=== PATIENT | female | born 1980 | race African-American/Black ===

== ENCOUNTER 2016-10-24 14:18 | Inpatient (IN) | payer MEDICAID ==
[~2016-10-24] VITALS: Ht 165.1 cm; Wt 79.7 kg
[2016-10-24 14:35] VITALS: Ht 165.1 cm; Wt 79.7 kg
[2016-10-24] MEDS ORDERED: PRENAT PO (14:37)
[2016-10-24] MEDS ORDERED: LACTATED RINGER'S 1,000 ML IV SCH (15:58)
[2016-10-24] MEDS ORDERED: AMPICILLIN 2 GM/NS (PMX) 100 ML IV ONE (16:00)
[2016-10-24] MEDS ORDERED: MISOPROSTOL 200 MCG TAB PR PRN (16:00)
[2016-10-24] MEDS ORDERED: OXYTOCIN 30 UNITS/LR 500 ML IV SCH ×2 (16:00)
[2016-10-24] MEDS ORDERED: BUTORPHANOL 2 MG INJ IV PRN (16:00)
[2016-10-24] MEDS ORDERED: CARBOPROST 250 MCG INJ IM PRN (16:00)
[2016-10-24] MEDS ORDERED: LIDOCAINE 1% (MPF) 30 ML INJ INJ PRN (16:00)
[2016-10-24] MEDS ORDERED: METHYLERGONOVINE 0.2 MG INJ IM PRN (16:00)
[2016-10-24] MEDS ORDERED: OXYTOCIN 30 UNITS/LR 500 ML IV PRN (16:00)
[2016-10-24] MEDS ORDERED: LACTATED RINGER'S 1,000 ML IV PRN (16:00)
[2016-10-24] MEDS ORDERED: IBUPROFEN 600 MG TAB PO PRN (16:00)
--- NOTE | 2016-10-24 16:27 | TRIAGE ---
OB Triage Datetime Report Generated by CPN: 10/24/2016 16:27 Datetime: 10/24/2016 14:44 Stage of : OB Triage Assessment Type: Triage Maternal Assessment Level of Consciousness: Fully Conscious DTR's/Clonus: DTRs 2+; No Clonus Headache: Denies Blurred Vision: No Respiratory Effort: Unlabored; Regular Rhythm; Equal Expansion Breath Sounds, Left: Clear and Equal Breath Sounds, Right: Clear and Equal Nausea/Vomiting: Denies RUQ Epigastric Pain: Denies Lower Extremities Edema: None Degree: None Upper Extremities Edema: None Degree: None Facial Edema: None Temperature Route: Oral Fall Risk Assessment History of Falling: (0) No Secondary Diagnosis: (0) No Ambulatory Aid: (0) Bedrest/Nurse Assist IV Therapy: (0) No Gait: (0) Normal/Bedrest/Immobile Mental Status: (0) Oriented to Own Ability Fall Score: 0 Fall Risk Score Definition: No Risk: No action required Labor Evaluation Frequency: OCC Monitor Mode: External Duration (sec)2399: 60-80 Quality: Mild Pattern: Normal: <= 5 Contractions in 10 Minutes Resting Tone [place]: Relaxed Heart Rate FHR Baseline Rate: 130 Monitor Mode: External US FHR Baseline Changes: No Baseline Change Variability: Moderate 6-25 bpm Accelerations: 15X15 Decelerations: None Category: Category I Pain Assessment Pain Scale: 4 Pain Presence: Intermittent Pain Type: Cramping Pain Location: Abdomen Pain Relief Measures: Comfort Measures Vaginal Exam Membrane Status: Intact Datetime: 10/24/2016 14:38 Time of Arrival: 10/24/2016 14:35 EGA: 40.0 Arrived By: Ambulatory Arrived From: Home Chief Complaint: UC'S SINCE 10/23/16 IN THE MORNING Movement: Present Contractions: Irregular Contractions: 3-5 Rupture of Membranes: Denies Vaginal Bleeding: None Vaginal Discharge: Denies Recent Sexual Intercouse: Denies Abdominal Trauma: Not Applicable Patient Complaints: Contractions Time Provider Notified: 10/24/2016 16:10 Provider Notified: BENITO Initial Plan: U/S FOR POSITION AND ADMIT TO L_D
--- NOTE | 2016-10-24 16:34 | RADRPT ---
PROCEDURE: US OB. CLINICAL INDICATION: Pelvic pain , contractions TECHNIQUE: Transabdominal views of the pelvis are available for review. COMPARISON: No prior studies are available for comparison. FINDINGS: There is a single intrauterine gestation in a vertex position. The heart rate is noted at 128 bpm. The placenta is posterior. RPTAT: AA IMPRESSION: presentation is vertex. .Natalio Stacy MD, MD Date Time Electronically viewed and signed by .Natalio Stacy MD, MD on 10/24/2016 16:33 .S/
--- NOTE | 2016-10-24 18:57 | RADRPT ---
PROCEDURE: US biophysical profile. CLINICAL INDICATION: Macrosomia. well-being. TECHNIQUE: Multiple sonographic images of the uterus were obtained. The images were revi ewed on a PACS workstation. COMPARISON: 10/24/2016. FINDINGS: There is a single live intrauterine gestation. heart rate is 140 beats per minute. The position is cephalic. The placenta is posterior, grade 2. The PETRA is 12.2 cm. Breathing Movement: 2 Gross Body Movement: 2 Tone: 2 Qualitative Amniotic Fluid Volume: 2 TOTAL: 8 IMPRESSION: 1. Single viable intrauterine gestation. 2. Biophysical profile = 10/08. 3. PETRA = 12.2 cm. RPTAT: HH .Jerald Ballesteros MD, MD Date Time Electronically viewed and signed by .Jerald Ballesteros MD, MD on 10/24/2016 18:57 .N/
--- NOTE | 2016-10-24 19:02 | RADRPT ---
PROCEDURE: US OB Limited for Estimated Weight. CLINICAL INDICATION: 36 years of age, female. Macrosomia. TECHNIQUE: Multiple sonographic images of the pelvis were obtained. Transabdominal imaging only w as performed. The images were reviewed on a PACS workstation. Image quality: Satisfactory. COMPARISON: No prior studies are available for comparison. FINDINGS: Philip : Number of fetuses: 1 GENERAL EVALUATION: Cardiac activity: Present. FHR 132 bpm Presentation: Cephalic Placenta: Placenta site: Posterior. No evidence of placental previa. Placental grade 2 Cervix (transabdominal): Not evaluated PETRA: Not evaluated DATING: Clinical RAMOS: October 25, 2016 EGA based on RAMOS: 39 weeks 6 days BIOMETRY: BPD = 9.1 cm , 36 weeks 5 days HC = 32.8 cm , 37 weeks 1 day AC = 34.9 cm , 38 weeks 6 days FL = 7.5 cm , 38 weeks 1 day Composite sonographic age: 37 weeks 5 days plus or minus 3 weeks Estimated due date by ultrasound measurements: November 09, 2016 EFW 3429 grams, 36 percentile. ANATOMY: Not evaluated. IMPRESSION: 1. Single living fetus in cephalic presentation. 2. Composite sonographic age of 37 weeks 5 days lags behind the clinical gestation age of 39 weeks 6 days by 2 weeks. 3. Estimated weight is 3429 grams that is at the 36 percentile for gestational age. 4. Posterior grade 2 placenta. RPTAT: HCTS Physician Emma Date Time Electronically viewed and signed by Physician Emma on 10/24/2016 19:02 CS/
[2016-10-24] MEDS ORDERED: AMPICILLIN 1 GM/NS (PMX) 50 ML IV SCH (20:00)
--- NOTE | 2016-10-24 20:37 | TRIAGE ---
OB Triage Datetime Report Generated by CPN: 10/24/2016 20:37 Datetime: 10/24/2016 18:39 Frequency: 2-4 Monitor Mode: External Duration (sec)2399: 40-60 Quality: Mild Pattern: Normal: <= 5 Contractions in 10 Minutes Resting Tone [place]: Relaxed FHR Baseline Rate: 130 Monitor Mode: External US FHR Baseline Changes: No Baseline Change Variability: Moderate 6-25 bpm Accelerations: 15X15 Decelerations: None Category: Category I Pain Scale: 2 Pain Presence: Intermittent Pain Type: Cramping Pain Location: Abdomen Pain Relief Measures: Comfort Measures Datetime: 10/24/2016 17:00 Stage of : Labor Headache: Denies Blurred Vision: No RUQ Epigastric Pain: Denies Facial Edema: None Frequency: 3-5 Monitor Mode: External Duration (sec)2399: 60 Quality: Moderate Pattern: Normal: <= 5 Contractions in 10 Minutes Resting Tone [place]: Relaxed FHR Baseline Rate: 140 FHR Baseline Changes: No Baseline Change Variability: Moderate 6-25 bpm Accelerations: 15X15 Decelerations: None Category: Category I Membrane Status: Intact Datetime: 10/24/2016 16:15 Assessment Type: Admission Assessment Vaginal Bleeding: None Level of Consciousness: Fully Conscious DTR's/Clonus: DTRs 2+; No Clonus Headache: Denies Blurred Vision: No Respiratory Effort: Unlabored; Regular Rhythm; Equal Expansion Breath Sounds, Left: Clear and Equal Breath Sounds, Right: Clear and Equal Nausea/Vomiting: Denies RUQ Epigastric Pain: Denies Lower Extremities Edema: None Degree: None Upper Extremities Edema: None Degree: None Facial Edema: None History of Falling: (0) No Secondary Diagnosis: (0) No Ambulatory Aid: (0) Bedrest/Nurse Assist IV Therapy: (0) No Gait: (0) Normal/Bedrest/Immobile Mental Status: (0) Oriented to Own Ability Fall Score: 0 Fall Risk Score Definition: No Risk: No action required Frequency: 3-5 Duration (sec)9799: 40-60 Quality: Mild Pattern: Normal: <= 5 Contractions in 10 Minutes Resting Tone [place]: Relaxed FHR Baseline Rate: 125 Variability: Moderate 6-25 bpm Accelerations: 15X15 Decelerations: None Category: Category I Pain Scale: 4 Pain Presence: Intermittent Pain Type: Cramping Pain Location: Abdomen Membrane Status: Intact Datetime: 10/24/2016 16:12 Dilatation (cms): 1.0 Effacement (%): 50 Station: -3 Datetime: 10/24/2016 15:33 Frequency: 3-5 Monitor Mode: External Duration (sec)1105: 60-70 Quality: Mild Pattern: Normal: <= 5 Contractions in 10 Minutes Resting Tone [place]: Relaxed FHR Baseline Rate: 120 Monitor Mode: External US FHR Baseline Changes: No Baseline Change Variability: Moderate 6-25 bpm Accelerations: 15X15 Decelerations: None Category: Category I Pain Scale: 4 Pain Presence: Intermittent Pain Type: Cramping Pain Location: Abdomen Pain Relief Measures: Comfort Measures Datetime: 10/24/2016 14:44 Fall Score: 0 Fall Risk Score Definition: No Risk: No action required Datetime: 10/24/2016 14:38 Initial Plan: U/S FOR POSITION AND ADMIT TO L_D BPP AND EFW AND PETRA
--- NOTE | 2016-10-24 20:53 | PN ---
Triage Information Date/Time Oct 24, 2016 at 16:30 Reason for visit: Uterine contractions Weeks of Gestation 40w /Para 4/2 Hypertention: none Additional information PMHx: none. PSHx: none. POBHx: x 2. NKDA. Objective BP 103/68 T=98.4 Heart Rate: 130's Heart Rate Comments with accels to 160 bpm. No decels. Contractions: >10 Minutes Apart (q 30 minutes for the larger felt UC's but does have smaller, shorter UC's q 1-2 min) Exam 5-%//-3 Results/Medications Imaging Results EFW 3429 grams. BPP 8 with an PETRA of 12.1. VTX. Disposition: Discharge Assessment/Plan Per Dr Vu will return for induction on Friday 10/27. Labor precautions reviewed. The pros and cons of induction were reviewed. ABEL CHING MD Oct 24, 2016 20:53
== END 2016-10-24 20:40 | disposition home or self-care (01) | DRG 780 ==
LOC: L-D 14:18 → OBT 14:18 → L-D 16:30
PROVIDERS: ADMIT Obstetrics & Gynecology; ATTEND Obstetrics & Gynecology
DX: O47.1 False labor at or after 37 completed weeks of gestation (principal); O09.523 Supervision of elderly multigravida, third trimester; Z3A.40 40 weeks gestation of pregnancy
CPT/HCPCS: 76815; 76818; G0463; J7120

== ENCOUNTER 2016-10-27 18:00 | Inpatient (IN) | payer MEDICAID ==
[~2016-10-27] VITALS: Ht 165.1 cm; Wt 80.5 kg
[~2016-10-27 18:00] MED LIST: PRENAT PO
[2016-10-27 18:45] VITALS: Ht 165.1 cm; Wt 80.5 kg
[2016-10-27 18:46] VITALS: BP 109/67; PULSE 86; RESP 17
[2016-10-27] MEDS: LACTATED RINGER'S 1,000 ML IV SCH (19:00)
[2016-10-27] MEDS ORDERED: LIDOCAINE 1% (MPF) 30 ML INJ INJ PRN (20:30)
[2016-10-27] MEDS ORDERED: BUTORPHANOL 2 MG INJ IV PRN (20:30)
[2016-10-27] MEDS ORDERED: OXYTOCIN 30 UNITS/LR 500 ML IV PRN (20:30)
[2016-10-27] MEDS ORDERED: OXYTOCIN 30 UNITS/LR 500 ML IV SCH ×2 (20:30)
[2016-10-27] MEDS ORDERED: METHYLERGONOVINE 0.2 MG INJ IM PRN (20:30)
[2016-10-27] MEDS ORDERED: MISOPROSTOL 200 MCG TAB PR PRN (20:30)
[2016-10-27] MEDS ORDERED: LACTATED RINGER'S 1,000 ML IV PRN (20:30)
[2016-10-27] MEDS ORDERED: IBUPROFEN 600 MG TAB PO PRN (20:30)
[2016-10-27] MEDS ORDERED: CARBOPROST 250 MCG INJ IM PRN (20:30)
[2016-10-27 21:36] LABS: BASOPHILS % 0.5 % (0.0-2.0); EOSINOPHILS # 0.1 10^3/ul (0.0-0.5); EOSINOPHILS % 0.9 % (0.0-7.0); HEMATOCRIT 34.2 % (37.0-47.0); HEMOGLOBIN 11.6 g/dl (12.0-16.0); LYMPHOCYTES # 2.3 10^3/ul (0.8-2.9); LYMPHOCYTES % 30.9 % (15.0-51.0); MEAN CORPUSCULAR HEMOGLOBIN 29.5 pg (29.0-33.0); MEAN CORPUSCULAR HGB CONC 33.9 g/dl (32.0-37.0); MEAN PLATELET VOLUME 9.9 fl (7.4-10.4); MONOCYTE # 0.6 10^3/ul (0.3-0.9); NEUTROPHILS % 57.4 % (39.0-77.0); PLATELET COUNT 175 10^3/UL (140-415); RED BLOOD COUNT 3.93 10^6/ul (4.20-5.40); RED CELL DISTRIBUTION WIDTH 13.4 % (11.5-14.5); WHITE BLOOD COUNT 7.4 10^3/ul (4.8-10.8)
[2016-10-27 21:48] LABS: INR 0.94; PARTIAL THROMBOPLASTIN TIME 25.8 Sec (25.0-35.0); PROTIME 12.6 Sec (12.2-14.2)
--- NOTE | 2016-10-27 22:10 | HP ---
Date/Time of Note Date/Time of Note DATE: 10/27/16 TIME: 22:07 OB - History Hx of Present Chief Complaint: induction of labor Last Menstrual Period: Oct 27, 2016 Estimated Due Date: Oct 26, 2016 : 5 Para: 2 Spontaneous : 2 Therapeutic : 0 Care: Good Care Ultrasounds: Normal mid trimester US Obstetrical Complications: None Medical Complications: None Past Family/Social History * Past Medical, Surgical, Family and Obstetric Histories reviewed from chart. GBS Status: Negative OB Admission Exam Vital Signs Vital Signs Vital Signs Date Time Temp Pulse Resp B/P Pulse Ox O2 Delivery O2 Flow Rate FiO2 10/27/16 18:46 98.6 86 17 109/67 Room Air Physical Exam HEENT: WNL Heart: Rhythm Normal Lungs: Clear, Equal Abdomen: WNL Extremities: Normal Reflexes: Normal Cervical Dilatation: Fingertip Effacement: 50% Station: -2 Membranes: Intact Accelerations: Accelerations Present Decelerations: No Decelerations Varibility: Moderate Last 72 hours Lab Results CBC & BMP 10/27/16 18:50 OB Assessment/Plan Reason for admission: induction of labor Plan: Induction Induction Method: per Misoprostol Protocol ANGELA BATISTA MD Oct 27, 2016 22:10
[2016-10-27] MEDS: MISOPROSTOL 25 MCG CAPSULE PO SCH (22:48)
[2016-10-28] VITALS (8 sets, daily range): BP systolic 97–121; BP diastolic 54–76; PULSE 67–85; RESP 16–20
[2016-10-28] MEDS: MISOPROSTOL 25 MCG CAPSULE PO SCH ×4 (03:02→13:00)
[2016-10-28] MEDS: LACTATED RINGER'S 1,000 ML IV SCH ×3 (03:05→14:10)
[2016-10-28] MEDS ORDERED: DEXTROSE 5%-LR 1,000 ML IV PRN (09:30)
[2016-10-28] MEDS ORDERED: OXYTOCIN 30 UNITS/LR 500 ML IV SCH (09:30)
[2016-10-28] MEDS ORDERED: FENTAnyl 2MCG/ML-ROPIV 0.2% 100 ML ONE (14:38)
--- NOTE | 2016-10-28 18:02 | LDN ---
Date/Time of Note Date/Time of Note DATE: 10/28/16 TIME: 18:01 Delivery Summary Weeks of Gestation term preg nsd Placenta Delivered: Spontaneously Meconium: none Episiotomy: No Anesthesia type: Epidural Estimated blood loss: 350 Sponge & Needle done & correct: Yes All needle counts correct: Yes Problems: CONSTANTINE OLIVER MD Oct 28, 2016 18:02
[2016-10-28] MEDS: LACTATED RINGER'S 1,000 ML IV* SCH (20:44)
[2016-10-28] MEDS ORDERED: ZOLPIDEM 5 MG TAB PO PRN (21:00)
[2016-10-28] MEDS ORDERED: MISOPROSTOL 200 MCG TAB PR PRN (21:00)
[2016-10-28] MEDS ORDERED: CARBOPROST 250 MCG INJ IM PRN (21:00)
[2016-10-28] MEDS ORDERED: BENZOCAINE 20% 56 ML SPRAY TOP PRN (21:00)
[2016-10-28] MEDS ORDERED: MAGNESIUM HYDROXIDE 30ML CUP PO PRN (21:00)
[2016-10-28] MEDS ORDERED: METHYLERGONOVINE 0.2 MG INJ IM PRN (21:00)
[2016-10-28] MEDS ORDERED: ACETAMINOPHEN 325 MG TAB PO PRN (21:00)
[2016-10-28] MEDS ORDERED: SENNA/DOCUSATE NA (8.6MG/50MG) TAB PO PRN (21:00)
[2016-10-28] MEDS ORDERED: OXYTOCIN 30 UNITS/LR 500 ML IV PRN (21:00)
[2016-10-28] MEDS ORDERED: LANOLIN 7 GM TUBE TOP PRN (21:00)
[2016-10-28] MEDS ORDERED: DIPHENHYDRAMINE 25 MG CAP PO PRN (21:00)
[2016-10-28] MEDS ORDERED: WITCH HAZEL/GLYCERIN PAD PR PRN (21:00)
[2016-10-29] MEDS: IBUPROFEN 800 MG TAB PO SCH ×4 (00:27→17:24)
[2016-10-29 00:30] VITALS: BP 120/80; PULSE 80; RESP 18
[2016-10-29] MEDS: OXYTOCIN 30 UNITS/LR 500 ML IV SCH ×2 (00:30→00:44)
[2016-10-29 03:30] VITALS: BP 103/58; PULSE 75; RESP 18
[2016-10-29] MEDS: LACTATED RINGER'S 1,000 ML IV* SCH (04:44)
[2016-10-29 08:00] VITALS: BP 101/71; PULSE 81; RESP 16
[2016-10-29] MEDS: HYDROCODONE/APAP (5/325) TAB PO PRN ×2 (08:28→22:32)
--- NOTE | 2016-10-29 10:06 | QN ---
Documentation Comment doing well vss d/c home next am CONSTANTINE OLIVER MD Oct 29, 2016 10:06
--- NOTE | 2016-10-29 10:07 | DS ---
Date/Time of Note Date/Time of Note DATE: 10/29/16 TIME: 10:06 Discharge Summary Admission/Discharge Info Admit Date/Time Oct 27, 2016 at 18:10 Discharge Date/Time Discharge Diagnosis term preg Patient Condition: Stable Hospital Course unremarkable Home Meds Reported Medications Multivit/Min/Fol Ac/Iron/Pren* ( S*) 1 Tab Tab, 1 TAB PO DAILY, TAB 10/24/16 Primary Care Provider Care Physician No Primary CONSTANTINE OLIVER MD Oct 29, 2016 10:07
--- NOTE | 2016-10-29 10:07 | PD.PPDC ---
HR COORDINATOR Discharge Instruction Condition Patient Condition: Stable Diet Diet: Resume Regular Diet Activity/Restrictions Activity: Normal Activity May Shower Restrictions: No Exercising No Lifting No Driving No Sexual Activity Nothing in the Vagina No [place] No Tampons, douche Wound/Drain Care Instructions Wound/Drain Care Instructions: Wash with soap and water Keep clean and dry Follow-up Follow-up with Physician: 3, Week/Weeks Return to clinic for [employer] Instructions: Fever greater than 101 Chills Worsening abdominal pain Excessive Vaginal Bleeding More than 2 pads per hour Unable to tolerate diet OB Instructions: Breast Tenderness Depression Blurried Vision Headache Surgical Instructions: Incisional Drainage Incisional Redness CONSTANTINE OLIVER MD Oct 29, 2016 10:07
[2016-10-29 10:16] LABS: BASOPHIL # 0.1 10^3/ul (0.0-0.1); BASOPHILS % 0.4 % (0.0-2.0); EOSINOPHILS # 0.1 10^3/ul (0.0-0.5); EOSINOPHILS % 0.5 % (0.0-7.0); HEMOGLOBIN 11.3 g/dl (12.0-16.0); LYMPHOCYTES # 2.5 10^3/ul (0.8-2.9); LYMPHOCYTES % 20.1 % (15.0-51.0); MEAN CORPUSCULAR HGB CONC 33.2 g/dl (32.0-37.0); MEAN CORPUSCULAR VOLUME 87.4 fl (82.0-101.0); MEAN PLATELET VOLUME 9.5 fl (7.4-10.4); MONOCYTE # 0.9 10^3/ul (0.3-0.9); MONOCYTES % 7.1 % (0.0-11.0); NEUTROPHILS % 71.1 % (39.0-77.0); PLATELET COUNT 144 10^3/UL (140-415); RED BLOOD COUNT 3.89 10^6/ul (4.20-5.40); RED CELL DISTRIBUTION WIDTH 13.3 % (11.5-14.5); WHITE BLOOD COUNT 12.4 10^3/ul (4.8-10.8)
[2016-10-29 16:00] VITALS: BP 81/46; PULSE 75; RESP 16
[2016-10-29 20:00] VITALS: BP 102/65; PULSE 88; RESP 18
[2016-10-30 04:00] VITALS: BP 88/53; PULSE 73; RESP 18
[2016-10-30] MEDS: IBUPROFEN 800 MG TAB PO SCH ×3 (05:21→12:42)
[2016-10-30 07:50] VITALS: BP 101/62; PULSE 67; RESP 16
[2016-10-30] MEDS ORDERED: MEASLES,MUMPS,RUBELLA VACCINE INJ SC* ONE (09:00)
[2016-10-30] MEDS ORDERED: DIPHTH/TET/ACEL PERTUSS (ADULT) 0.5 ML VIAL IM* ONE (09:00)
[2016-10-30] MEDS ORDERED: VARICELLA VACCINE LIVE/PF 1,350 UNIT/0.5 ML ML SC* ONE (09:00)
--- NOTE | 2016-10-30 17:15 | PN ---
Date/Time of Note Date/Time of Note DATE: 10/30/16 TIME: 17:15 OB Subjective Subjective Subjective Denies any complaint. Bleeding decreased significantly. Negative. Denies any symptoms. OB Objective Objective Objective Abd: [Soft, non tender, non distended. Normal bowel sounds]. Fundus firm and nontender Skin: [No petechiae or rashes] Ext: [No cyanosis, 1+ bilateral lower extremity edema symmetric. Neuro: [Awake and alert] Psych: [Normal Mood and Affect] Hematology - 72 Hrs Test 10/27/16 18:50 10/29/16 08:58 White Blood Count 7.410^3/ul (4.8-10.8) 12.410^3/ul (4.8-10.8) #H Red Blood Count 3.9310^6/ul (4.20-5.40) L 3.8910^6/ul (4.20-5.40) L Hemoglobin 11.6g/dl (12.0-16.0) L 11.3g/dl (12.0-16.0) L Hematocrit 34.2% (37.0-47.0) L 34.0% (37.0-47.0) L Mean Corpuscular Volume 87.0fl (82.0-101.0) 87.4fl (82.0-101.0) Mean Corpuscular Hemoglobin 29.5pg (29.0-33.0) 29.0pg (29.0-33.0) Mean Corpuscular Hemoglobin Concent 33.9g/dl (32.0-37.0) 33.2g/dl (32.0-37.0) Red Cell Distribution Width 13.4% (11.5-14.5) 13.3% (11.5-14.5) Platelet Count 92410^3/UL (140-415) 60122^3/UL (140-415) Mean Platelet Volume 9.9fl (7.4-10.4) # 9.5fl (7.4-10.4) Neutrophils % 57.4% (39.0-77.0) 71.1% (39.0-77.0) Lymphocytes % 30.9% (15.0-51.0) 20.1% (15.0-51.0) Monocytes % 8.0% (0.0-11.0) 7.1% (0.0-11.0) Eosinophils % 0.9% (0.0-7.0) 0.5% (0.0-7.0) Basophils % 0.5% (0.0-2.0) 0.4% (0.0-2.0) Nucleated Red Blood Cells % 0.0/100WBC (0.0-0.0) 0.0/100WBC (0.0-0.0) Neutrophils # (Manual) 4.210^3/ul (1.7-7.5) 8.810^3/ul (1.7-7.5) H Lymphocytes # 2.310^3/ul (0.8-2.9) 2.510^3/ul (0.8-2.9) Monocytes # 0.610^3/ul (0.3-0.9) 0.910^3/ul (0.3-0.9) Eosinophils # 0.110^3/ul (0.0-0.5) 0.110^3/ul (0.0-0.5) Basophils # 0.010^3/ul (0.0-0.1) 0.110^3/ul (0.0-0.1) Nucleated Red Blood Cells # 0.010^3/ul (0.0-0.0) 0.010^3/ul (0.0-0.0) OB Assessment/Plan Other Assessment: Status post day #2 Doing well Asymptomatic Stable enough to be discharged home DC home Follow-up in 6 weeks with primary OB MYNOR Alonso MD Oct 30, 2016 17:15
--- NOTE | 2016-10-30 17:19 | DS ---
Date/Time of Note Date/Time of Note DATE: 10/30/16 TIME: 17:18 Discharge Summary Admission/Discharge Info Admit Date/Time Oct 27, 2016 at 18:10 Discharge Date/Time Oct 30, 2016 at 14:55 Discharge Diagnosis term preg Patient Condition: Good Procedures Hospital Course unremarkable Home Meds Reported Medications Multivit/Min/Fol Ac/Iron/Pren* ( S*) 1 Tab Tab, 1 TAB PO DAILY, TAB 10/24/16 Primary Care Provider Care Physician No Primary MYNOR ELLIOTT MD Oct 30, 2016 17:18
== END 2016-10-30 14:55 | disposition home or self-care (01) | DRG 775 ==
LOC: L-D 18:10 → PP1 10-28 21:14
PROVIDERS: ADMIT Obstetrics & Gynecology; ATTEND Obstetrics & Gynecology
PROC: 10E0XZZ Delivery of Products of Conception, External Approach (ICD-10-PCS; principal; 2016-10-28)
PROC: 3E033VJ Introduction of Other Hormone into Peripheral Vein, Percutaneous Approach (ICD-10-PCS; 2016-10-28)
DX: O80 Encounter for full-term uncomplicated delivery (principal); Z37.0 Single live birth; Z3A.39 39 weeks gestation of pregnancy
CPT/HCPCS: 62319; 85025; 85610; 85730; 86592; 86900; 86901; 87340; 90715; 90716; 94760; J0595; J2210; J2590; J3010; J7120